=== PATIENT | female | born 1960 | race Caucasian/White ===

== ENCOUNTER → 2017-05-23 | Outpatient (CLI) | payer OTHER ==
--- NOTE | 2017-05-26 08:34 | RAD ---
EXAM DESCRIPTION: Knee,Left Complete CLINICAL HISTORY: 56 yearsFemale, PAIN IN LEFT KNEE COMPARISON: 06/08/2015 IMPRESSION: 4 views of the left knee were obtained. Severe changes of osteoarthritis are present involving all 3 compartments of the knee. The findings are most pronounced in the medial tibiofemoral compartment where there is complete loss of the joint space with a [id number] appearance and significant subchondral sclerosis. Large marginal patellofemoral osteophytes are present. There is no evidence of acute fracture or destructive osseous lesion. No evidence of a joint effusion. Degenerative changes have slightly progressed since the prior exam. Electronically signed by: Rishi Cox MD 05/26/2017 8:33 AM CDT
--- NOTE | 2017-05-26 08:35 | RAD ---
EXAM DESCRIPTION: Pelvis CLINICAL HISTORY: 56 yearsFemale, PAIN IN LEFT HIP COMPARISON: 06/08/2015 IMPRESSION: There is no evidence of acute fracture, dislocation, or destructive osseous lesion. Moderate changes of osteoarthritis are demonstrated in the left hip with narrowing of the joint space and subchondral sclerosis in the acetabulum. More mild to moderate changes of osteoarthritis in the right hip. Moderate degenerative changes in the pubic symphysis and mild degenerative changes in both sacroiliac joints. Calcified phleboliths in the pelvis. Electronically signed by: Rishi Cox MD 05/26/2017 8:34 AM CDT
== END | disposition home or self-care (01) ==
LOC: RAD 09:21
PROVIDERS: ATTEND Orthopaedic Surgery
DX: M25.552 Pain in left hip (principal); M25.562 Pain in left knee

== ENCOUNTER → 2017-07-04 | Outpatient (CLI) | payer OTHER ==
--- NOTE | 2017-07-04 16:17 | RAD ---
EXAM DESCRIPTION: Chest,2 Views CLINICAL HISTORY: 56 years Female, PRE-OP. OSTEOARTHRITIS. M19.90 COMPARISON: None. IMPRESSION: Heart size and pulmonary vascularity are within normal limits. There is no airspace consolidation, pleural effusion, or pneumothorax. No acute osseous abnormality. Electronically signed by: Ezekiel Fields MD 07/04/2017 4:16 PM CDT
== END ==
LOC: YCFC.O 08:07
PROVIDERS: ATTEND Orthopaedic Surgery
DX: M19.90 Unspecified osteoarthritis, unspecified site (principal); Z01.818 Encounter for other preprocedural examination

== ENCOUNTER 2017-07-16 07:00 | Inpatient (IN) | payer OTHER ==
--- NOTE | 2017-07-14 11:21 | HP ---
CHIEF COMPLAINT: Left knee pain. HISTORY OF PRESENT ILLNESS: Karuna is a patient of ours that we have done a right total knee arthroplasty on in the past. She has been having pain now that has been going on for quite some time. She says the pain is starting to cause her to have difficulty with ambulation. She denies any radiation of pain , neurologic symptoms or trauma. She has failed conservative measures. Because of her failure of conservative measures, she has requested operative intervention. After discussing the risks, benefits and alternatives to that, the patient has given informed consent. PAST SURGICAL HISTORY: 1. Contralateral total knee arthroplasty. MEDICATIONS: 1. Lisinopril. 2. Metformin. 3. Glimepiride. 4. Tramadol. 5. Tylenol with codeine. ALLERGIES: DARVON. CODE STATUS: Full code. IMMUNIZATIONS: Up to date. SOCIAL HISTORY: The patient does not drink or use any illicit drugs. She does smoke. FAMILY HISTORY: None pertinent to today's complaint. REVIEW OF SYSTEMS: Negative except as indicated in the History of Present Illness. PHYSICAL EXAMINATION: VITAL SIGNS: Blood pressure 128/77. Pulse 92. Height 5'3". Weight 230. MENTAL STATUS: The patient is awake, alert, and is able to give a good history and participate in the physical. The patient is oriented to person, place and time. SKIN: Normal tone and turgor. HEENT: Normocephalic, atraumatic. Pupils equal, round and reactive. Mucosal membranes are moist. NECK: Normal range of motion. No thyromegaly, no lymphadenopathy. CHEST: Normal respiratory excursion. CARDIAC: Regular rate and rhythm. No murmurs, rubs or gallops. MUSCULOSKELETAL: The bilateral upper extremities show full active range of motion. She has intact sensation in the extremities and they are warm and well perfused. There is no deformity and no crepitus. The right lower extremity shows full extension. Flexion is to about 105 degrees. She has a well-healed wound anteriorly. Sensation is intact. It is warm and well perfused. There is no laxity. The left knee shows extension that is full, but flexion only to about 90 degrees. Sensation is intact throughout. She has no varus/valgus or anterior/posterior laxity. She has varus deformity. IMAGING: X-rays show advanced arthritis with varus deformity. ASSESSMENT: 1. Advanced osteoarthritis. PLAN: At this point, she has failed conservative measures. As such, she is requesting operative intervention. We have discussed the risks, benefits, and alternatives to that and the patient has given informed consent. #[id number] [facility]
[~2017-07-16 07:00] MED LIST: ACETAMINOPHEN 325 MG TAB PO PRN; ACETAMINOPHEN 500 MG TAB PO PRN; ACETAMINOPHEN IV 1000 MG/100 ML BOTTLE IV ONE; ALUMINUM & MAGNESIUM HYDROXIDE 30 ML UD PO PRN; BENZOCAINE-MENTH LOZ (CEPACOL) 1 EA LOZ MT PRN; BISACODYL SUPPOSITORY 10 MG PR PRN; BUPIVACAINE 0.25% W/EPI 50 ML VIAL INJ ONE; DEX 5% W/NACL 0.45% 1000ML 1,000 ML IVS PRN; LACTATED RINGERS 1,000 ML ONE; MAGNESIUM HYDROXIDE 30 ML UD PO PRN; MIDAZOLAM INJ 5 MG/5 ML VIAL IV ONE; MORPHINE PCA 1 MG/ML 100ML 1 BAG in PREMIX BAG 1 BAG IVPB SCH; MORPHINE SULFATE *EPIDURAL* 0.5 MG/ML VIAL INJ ONE; MORPHINE SULFATE INJ 10 MG/ML VIAL IM PRN; MORPHINE SULFATE INJ 10 MG/ML VIAL IV PRN; NALOXONE HCL INJ 0.4 MG/ML VIAL IV PRN; ONDANSETRON INJ 4 MG/2 ML VIAL IV PRN; PROMETHAZINE HCL INJ 12.5 MG in SODIUM CHLORIDE 0.9% 50ML 50 ML IVPB PRN; PROMETHAZINE HCL INJ 25 MG in SODIUM CHLORIDE 0.9% 50ML 50 ML IVPB PRN; SODIUM CHL 0.9% 100ML MINI-BAG 100 ML IVPB ONE; SODIUM CHLORIDE 0.9% (FLUSH) 10 ML SYG IV PRN; SODIUM CHLORIDE 0.9% 100ML 100 ML IVPB ONE; SODIUM CHLORIDE 0.9% 250ML 250 ML ONE; TEMAZEPAM 15 MG CAP PO PRN; TRANEXAMIC ACID 1,000 MG/10 ML VIAL ONE; TRANEXAMIC ACID INJ 1,000 MG in SODIUM CHLORIDE 0.9% 100ML 100 ML IVPB ONE; VANCOMYCIN HCL INJ 1,000 MG VIAL IVPB ONE; ZOLPIDEM TARTRATE 5 MG TAB PO PRN; ceFAZolin SODIUM 1 GM VIAL ONE; fentaNYL CITRATE INJ 50 MCG/ML AMP IV ONE
[2017-07-16] MEDS ORDERED: KETAMINE HCL 100 MG/ML VIAL ONE (07:56)
[2017-07-16] MEDS ORDERED: SUGAMMADEX SODIUM 200 MG/2 ML VIAL IV ONE (09:03)
[2017-07-16] MEDS ORDERED: MORPHINE PCA 1 MG/ML 100 ML BAG IVPB ONE (09:28)
[2017-07-16] MEDS ORDERED: LEVALBUTEROL NEBS 1.25 MG/3 ML VIAL NEB ONE (10:14)
[2017-07-16] MEDS ORDERED: LACTATED RINGERS 1,000 ML ONE (10:30)
[2017-07-16] MEDS: IV SET AND CAP CHANGE INJ INJ SCH (11:52)
[2017-07-16] MEDS: CELECOXIB 100 MG CAP PO SCH ×2 (11:53→17:52)
[2017-07-16] MEDS: MAGNESIUM OXIDE 400 MG TAB PO SCH (11:53)
[2017-07-16] MEDS ORDERED: DEXAMETHASONE INJ 10 MG/ML VIAL IV ONE (12:00)
[2017-07-16] MEDS ORDERED: PROPOFOL 200 MG/20 ML VIAL IV ONE (12:00)
[2017-07-16] MEDS ORDERED: SODIUM CHLORIDE 0.9% 50 ML VIAL INJ ONE (12:00)
[2017-07-16] MEDS ORDERED: LIDOCAINE 1% 10 ML VIAL INJ ONE (12:00)
[2017-07-16] MEDS ORDERED: METOCLOPRAMIDE HCL INJ 10 MG/2 ML VIAL IV ONE (12:00)
[2017-07-16] MEDS ORDERED: raNITIdine HCL INJ 25 MG/ML VIAL IV ONE (12:00)
[2017-07-16] MEDS ORDERED: PHENYLEPHRINE INJ 1ML 10 MG/ML VIAL IV ONE (12:00)
[2017-07-16] MEDS ORDERED: SODIUM CHLORIDE 0.9% 250ML 250 ML ONE (14:50)
[2017-07-16] MEDS ORDERED: VANCOMYCIN HCL INJ 1,000 MG VIAL IVPB ONE (14:51)
[2017-07-16] MEDS ORDERED: ceFAZolin SODIUM 1 GM VIAL ONE (14:51)
[2017-07-16] MEDS ORDERED: GLUCAGON INJ 1 MG VIAL SUBCU PRN (15:29)
[2017-07-16] MEDS ORDERED: DEXTROSE 50% 25 GM/50 ML SYG IV PRN (15:29)
[2017-07-16] MEDS ORDERED: ALBUTEROL SULFATE 2.5 MG/3 ML VIAL NEB PRN (15:31)
[2017-07-16] MEDS: SODIUM CHLORIDE 0.45% 1000ML 1,000 ML IVS PRN (15:32)
[2017-07-16] MEDS: ALBUTEROL SULFATE 2.5 MG/3 ML VIAL NEB SCH ×2 (16:01→19:25)
--- NOTE | 2017-07-16 16:47 | PN ---
DATE: 07/16/17 SUBJECTIVE: Ms. Mack is doing well. She is comfortable. OBJECTIVE: She is afebrile. Vital signs are stable. Dressing is clean, dry and intact. ASSESSMENT: 1. Status post total knee arthroplasty. PLAN: The plan at this point is for her to begin weightbearing as tolerated on postoperative day 1. #[id number] [facility]
--- NOTE | 2017-07-16 17:00 | OP ---
DATE OF PROCEDURE: 07/16/17 PREOPERATIVE DIAGNOSIS: 1. Left knee osteoarthritis. POSTOPERATIVE DIAGNOSIS: 1. Left knee osteoarthritis. PROCEDURE: 1. Total knee arthroplasty. SURGEON: Garcia Kang M.D. SHIPPING LEAD PERSON: Saul Merritt CST, -C ANESTHESIA: General anesthesia. COMPLICATIONS: None. FINDINGS: Severe osteoarthritis. INDICATION FOR PROCEDURE: Ms. Mack has a history of severe knee pain. Ms. Mack has had total knee arthroplasty on the contralateral side and requested operative intervention on this side. After discussing the risks, benefits, and alternatives to that, she gave informed consent for that. DESCRIPTION OF PROCEDURE: The patient was brought to the Operating Room and placed in supine position. General anesthesia was induced and the patient's leg was sterilely prepped and draped. Following prepping and draping, the distal femur was exposed and using an intramedullary guide, the distal femoral cut was made. The appropriate sized cutting block was measured, pinned into place, and the anterior, posterior, and chamfer cuts were made. The ACL was transected and the tibia was subluxed. Both the medial and lateral menisci were removed. An intramedullary guide was used to make the proximal tibial cut. The appropriate sized base plate was placed and a trial polyethylene was placed. The trial femur was placed, the knee was reduced, and the knee was taken through a range of motion. The knee was stable in anterior, posterior, varus and valgus stress. The patella tracked anatomically without evidence of subluxation or dislocation. After trialing, the trial components were removed and the bony surfaces were thoroughly irrigated with saline. Following irrigation, the surfaces were dried and the final components were cemented into place. The excess cement was removed and the remaining cement was allowed to cure. The knee was again taken through a range of motion to confirm stability. The wound was then irrigated with saline and closure was performed using PDS to approximate the arthrotomy followed by closure of the subcutaneous tissues with a combination of running and interrupted Monocryl sutures. Sterile dressing was placed. The patient was awoken from anesthesia and taken to Recovery. COMPONENTS: Danna triathlon knee size 14 with size 4 tibia, 9 mm insert. POSTOPERATIVE INSTRUCTIONS: She will be weightbearing as tolerated on postoperative day 1. #[id number] [facility]
[2017-07-16] MEDS: INSULIN LISPRO 100 UNITS/ML PEN SUBCU SCH ×2 (17:04→21:04)
[2017-07-16] MEDS: CEFAZOLIN SODIUM 2 GRAMS IV 2 GM in PREMIX BAG 1 BAG IVPB SCH (17:11)
[2017-07-16] MEDS: GLIMEPIRIDE 2 MG TAB PO SCH (17:52)
[2017-07-16] MEDS: VANCOMYCIN HCL INJ 1,000 MG in SODIUM CHLORIDE 0.9% 250ML 250 ML IVPB SCH (17:53)
[2017-07-16] MEDS: metFORMIN HCL 500 MG TAB PO SCH (17:53)
--- NOTE | 2017-07-16 17:56 | CONS ---
SUPERVISING PHYSICIAN: Trevor Davila M.D. CHIEF COMPLAINT: Right knee pain. HISTORY OF PRESENT ILLNESS: This is a 56 year-old female patient who has been having a lot of knee pain over the last few years. The pain in her left knee has caused her difficulty with ambulation. She has failed conservative measures and because of this failure she has requested that Dr. Garcia Kang do a left total knee on her, and I am seeing her postoperatively after her left total knee arthroplasty. PAST MEDICAL HISTORY: 1. Diabetes mellitus. 2. Chronic obstructive pulmonary disease. 3. Chronic tobacco use. 4. Hypertension. PAST SURGICAL HISTORY: 1. Tubal ligation. 2. Left knee arthroscopy in 2003. 3. Heel spur removal. 4. Right total knee arthroplasty in 2015. CURRENT MEDICATIONS: Per the EMR and awaiting verification. ALLERGIES: ASPIRIN, SHELLFISH, AVOCADOS AND DARVON. FAMILY HISTORY: Noncontributory. SOCIAL HISTORY: She lives in [place]. Her primary care physician is Dr. Richard Alejandre. She is . She smokes 1 pack of cigarettes per day. She denies any ETOH or illicit drug use. REVIEW OF SYSTEMS: Denies weight change, fever or fatigue. HEENT: Denies ear pain, vision changes, sinus symptoms or sore throat. RESPIRATORY: Denies coughing, congestion or wheezing. CARDIOVASCULAR: Denies chest pain, palpitations or tachycardia. GASTROINTESTINAL: Denies abdominal pain, nausea, vomiting, diarrhea or constipation. GENITOURINARY: Denies dysuria, hematuria or polyuria. EXTREMITIES: As per the history of present illness. NEUROLOGIC: Denies headache, dizziness or seizures. PHYSICAL EXAMINATION: VITAL SIGNS: She is afebrile, heart rate 97, blood pressure 135/86, respiratory rate 18, O2 sat is 97% on 3 liters nasal cannula. GENERAL: This is a 56 year-old obese female patient who is lying in her hospital bed. She is in no acute distress. HEENT: Normocephalic and atraumatic. Pupils are equal and reactive. Oropharynx is clear. NECK: Supple without mass. CHEST: Essentially clear to auscultation bilaterally. There is equal rise and fall of the chest with inspiration and expiration. HEART: Regular rate and rhythm. ABDOMEN: Soft, nondistended, non-tender. Bowel sounds are positive. EXTREMITIES: Bilateral pedal pulses are palpable at +2. She has an Iceman in place to the left knee and she is also on the CPM machine. SKIN: Warm and dry. NEUROLOGIC: She is awake, alert and oriented times three. LABORATORY: Glucose has run between 120 and 151. X-ray has been reviewed via the EMR. All other labs and films have been reviewed via the EMR. IMPRESSION: 1. Arthritis of the left knee after failing conservative measures, postoperative left total knee arthroplasty performed by Dr. Garcia Kang, orthopedic surgeon, postoperative day number zero. 2. Hypertension. 3. Chronic tobacco use. 4. Chronic obstructive pulmonary disease. 5. Diabetes mellitus type 2. PLAN: We will continue present supportive care. Dr. Kang will cover for orthopedic issues. She will begin her physical therapy for strengthening and conditioning tomorrow. Restarted her home medicines, including adding Accu- Cheks with sliding scale insulin. I have encouraged her to stop smoking and I have also encouraged good pulmonary hygiene. I have ordered breathing treatments. We will continue to monitor the patient closely and followup as needed. Dr. Davila is the collaborating physician available for consultation. [facility][id number] [facility]
[2017-07-16] MEDS: FLUTICASONE/SALMETEROL 250/50 14 PUFF/17 GM INH INH SCH (19:25)
[2017-07-16] MEDS ORDERED: ENOXAPARIN SODIUM 30 MG/0.3 ML SYG SUBCU ONE (20:02)
[2017-07-16] MEDS ORDERED: CEFAZOLIN SODIUM 2 GRAMS IV 50 ML IVPB ONE (20:02)
[2017-07-16] MEDS: DOCUSATE CALCIUM 240 MG CAP PO SCH (21:10)
[2017-07-16] MEDS: LISINOPRIL 10 MG TAB PO SCH (21:11)
[2017-07-16] MEDS: ENOXAPARIN SODIUM 30 MG/0.3 ML SYG SUBCU SCH (22:55)
[2017-07-17] MEDS: CEFAZOLIN SODIUM 2 GRAMS IV 2 GM in PREMIX BAG 1 BAG IVPB SCH ×2 (00:09→07:46)
--- NOTE | 2017-07-17 03:32 | RAD ---
Examination: XR KNEE 1-2 VIEWS dated 07/16/2017 6:55 AM CDT History: TKA Comparison: Knee radiograph February 20, 2017 Technique: Two views of the left knee FINDINGS AND IMPRESSION: Interval total left knee arthroplasty without obvious hardware complication. Subcutaneous emphysema and large joint effusion which is expected early postsurgical change. Electronically signed by: Pollo Lopez MD 07/17/2017 3:30 AM CDT
[2017-07-17] MEDS ORDERED: VANCOMYCIN HCL INJ 1,000 MG VIAL IVPB ONE (03:37)
[2017-07-17] MEDS ORDERED: SODIUM CHLORIDE 0.9% 250ML 250 ML ONE (03:37)
[2017-07-17] MEDS: VANCOMYCIN HCL INJ 1,000 MG in SODIUM CHLORIDE 0.9% 250ML 250 ML IVPB SCH (05:46)
[2017-07-17] MEDS ORDERED: CEFAZOLIN SODIUM 2 GRAMS IV 50 ML IVPB ONE (07:34)
[2017-07-17] MEDS: metFORMIN HCL 500 MG TAB PO SCH ×2 (07:46→16:39)
[2017-07-17] MEDS: CELECOXIB 100 MG CAP PO SCH ×2 (07:46→16:39)
[2017-07-17] MEDS: INSULIN LISPRO 100 UNITS/ML PEN SUBCU SCH ×4 (07:53→21:17)
--- NOTE | 2017-07-17 08:13 | PN ---
DATE: 07/17/17 SUBJECTIVE: Ms. Mack is doing well and says she is ready to get out of bed. OBJECTIVE: Afebrile. Vital signs stable. Dressing is clean, dry and intact. ASSESSMENT: Status post total knee arthroplasty. PLAN: She will begin weight-bearing as tolerated and increase CPM as tolerated. #[id number] [facility]
[2017-07-17] MEDS: MAGNESIUM OXIDE 400 MG TAB PO SCH (08:44)
[2017-07-17] MEDS: LISINOPRIL 10 MG TAB PO SCH ×2 (08:44→20:46)
[2017-07-17] MEDS: FLUTICASONE/SALMETEROL 250/50 14 PUFF/17 GM INH INH SCH ×2 (08:48→19:15)
[2017-07-17] MEDS: ALBUTEROL SULFATE 2.5 MG/3 ML VIAL NEB SCH ×4 (08:48→19:15)
[2017-07-17] MEDS: HYDROcodone 5MG/APAP 325MG 1 EA TAB PO PRN ×2 (08:49→20:46)
[2017-07-17] MEDS: ENOXAPARIN SODIUM 30 MG/0.3 ML SYG SUBCU SCH ×2 (11:17→22:51)
[2017-07-17] MEDS ORDERED: NICOTINE PATCH 21 MG TD SCH (12:00)
[2017-07-17] MEDS: CYCLOBENZAPRINE HCL 10 MG TAB PO PRN ×2 (13:13→22:51)
[2017-07-17] MEDS: SODIUM CHLORIDE 0.45% 1000ML 1,000 ML IVS PRN (16:26)
[2017-07-17] MEDS: GLIMEPIRIDE 2 MG TAB PO SCH (16:39)
--- NOTE | 2017-07-17 19:43 | PN ---
DATE: 07/17/17 SUPERVISING PHYSICIAN: Trevor Davila M.D. SUBJECTIVE: The patient is resting in bed having just finished her CPM. Her site is dry and clean with no signs of infection. She has had no nausea or vomiting. Tolerating her diet well. She has been afebrile. She is requesting a nicotine patch. OBJECTIVE: VITAL SIGNS: T max 98.6, pulse 111, blood pressure 133/68, respirations 16, satting 95% on room air. I's and O's show a negative balance of 320 with 880 in, 1200 out. Weight is 107.6 kg. CHEST: Lungs are clear to auscultation bilaterally. HEART: Regular rate and rhythm. ABDOMEN: Soft, non- tender. Positive bowel sounds. EXTREMITIES: Bulky surgical dressing is in place over the left knee with the patient in the CPM. Pulses distally are strong. Capillary refill is brisk. NEUROLOGIC: She is alert and oriented times three. LABORATORY: Blood sugar is between 98 and 164. ASSESSMENT: 1. Arthritis of the left knee having failed conservative treatment measures in the outpatient setting requiring operative intervention with left total knee arthroplasty with the patient being on postoperative day 1. 2. Hypertension. 3. Chronic tobacco abuse. 4. Chronic obstructive pulmonary disease. 5. Diabetes mellitus type 2. PLAN: Will continue to follow the patient as she progresses through her physical therapy efforts under Physical Therapy and Dr. Kang. I will go ahead and start her on a nicotine patch as she does smoke approximately 1 pack a day, will start her on 21 mg daily. She will continue on sliding scale per protocol. Will continue to encourage pulmonary hygiene and incentive spirometry to prevent any postoperative complications. Will anticipate discharge at the discretion of Orthopedic Services and Physical Therapy when the patient has met her set goals. The plan at that point will be to continue with home PT with arrangements pending. Until then, will continue to monitor and treat appropriately. [facility][id number] [facility]
[2017-07-17] MEDS: DOCUSATE CALCIUM 240 MG CAP PO SCH (20:46)
[2017-07-18] MEDS: HYDROcodone 5MG/APAP 325MG 1 EA TAB PO PRN ×2 (02:23→08:08)
[2017-07-18] MEDS: traMADol HCL 50 MG TAB PO PRN ×2 (05:36→20:38)
[2017-07-18] MEDS: MAGNESIUM OXIDE 400 MG TAB PO SCH (08:08)
[2017-07-18] MEDS: metFORMIN HCL 500 MG TAB PO SCH ×2 (08:08→17:12)
[2017-07-18] MEDS: CYCLOBENZAPRINE HCL 10 MG TAB PO PRN ×2 (08:08→14:38)
[2017-07-18] MEDS: LISINOPRIL 10 MG TAB PO SCH ×2 (08:08→20:29)
[2017-07-18] MEDS: CELECOXIB 100 MG CAP PO SCH ×2 (08:08→17:12)
[2017-07-18] MEDS: INSULIN LISPRO 100 UNITS/ML PEN SUBCU SCH ×4 (08:18→22:06)
[2017-07-18] MEDS: NICOTINE PATCH 21 MG TD SCH (08:32)
[2017-07-18] MEDS: SODIUM CHLORIDE 0.9% (FLUSH) 10 ML SYG IV SCH ×2 (08:34→20:30)
[2017-07-18] MEDS: FLUTICASONE/SALMETEROL 250/50 14 PUFF/17 GM INH INH SCH ×2 (08:43→20:57)
[2017-07-18] MEDS: ALBUTEROL SULFATE 2.5 MG/3 ML VIAL NEB SCH (08:43)
[2017-07-18] MEDS ORDERED: HYDROcodone 10MG/APAP 325MG 1 EA TAB ONE (10:37)
[2017-07-18] MEDS: HYDROcodone 10MG/APAP 325MG 1 EA TAB PO PRN ×3 (10:42→18:34)
[2017-07-18] MEDS: ARFORMOTEROL TARTRATE 15 MCG/2 ML NEB NEB SCH ×2 (10:53→20:56)
[2017-07-18] MEDS: ENOXAPARIN SODIUM 30 MG/0.3 ML SYG SUBCU SCH ×2 (12:17→22:06)
--- NOTE | 2017-07-18 13:54 | PN ---
SUPERVISING PHYSICIAN: Trevor Davila MD DATE: 07/18/17 SUBJECTIVE: The patient came off her pump in the middle of the night. She has had some difficulty controlling her pain with p.o. medications and is making slow progress at this point. Her wounds remain clean and dry without any obvious signs of infection. She remains afebrile. She is tolerating the nicotine patch. OBJECTIVE: VITAL SIGNS: T-max 98.7. Pulse 100. Blood pressure 131/82. Respirations 20. Saturation 92% on room air. I&Os show positive balance of 1820 with 2620 in, 800 out. She has had several bowel movements. CHEST: Lungs clear to auscultation, just diminished slightly, more so on the right than the left, but no rhonchi or wheezing. HEART: Regular rate and rhythm. ABDOMEN: Obese, but soft and nontender. Positive bowel sounds. EXTREMITIES: The left knee has a surgical dressing in place which is clean and dry. There are no signs of infection. Distal pulses are strong. Capillary refill is brisk. NEUROLOGIC: Alert and oriented times three. LABORATORY: Postoperative hemoglobin and hematocrit yesterday was 9, hemoglobin 12.7, hematocrit 37.4. Blood sugars range from 98 to 161. ASSESSMENT: 1. Arthritis of the left knee having failed conservative treatment measures in the outpatient setting requiring operative intervention with left total knee arthroplasty with the patient being on postoperative day 2. 2. Hypertension. 3. Chronic tobacco abuse, encouraged to stop smoking. 4. Chronic obstructive pulmonary disease. 5. Diabetes mellitus type 2, stable. PLAN: The patient has some diminished breath sounds today and has been showing a little elevated heart rate. Therefore, I have transitioned her from albuterol treatments to Xopenex as well as added long-acting beta 2 agonist in the form of Brovana hopefully to assist and improve her lung function. She will continue to be encouraged to have aggressive pulmonary hygiene and utilize her spirometry. Arrangements have been made for discharge when the patient is stable for the [facility] and outpatient physical therapy through [facility]. Until discharge, we will continue to monitor the patient closely and treat appropriately. [facility][id number] [facility]
[2017-07-18] MEDS: LEVALBUTEROL NEBS 1.25 MG/3 ML VIAL NEB SCH ×2 (16:14→23:24)
[2017-07-18] MEDS: GLIMEPIRIDE 2 MG TAB PO SCH (17:12)
[2017-07-18] MEDS: DOCUSATE CALCIUM 240 MG CAP PO SCH (20:29)
[2017-07-19] MEDS: HYDROcodone 10MG/APAP 325MG 1 EA TAB PO PRN ×2 (02:23→08:05)
[2017-07-19] MEDS: FLUTICASONE/SALMETEROL 250/50 14 PUFF/17 GM INH INH SCH (07:09)
[2017-07-19] MEDS: ARFORMOTEROL TARTRATE 15 MCG/2 ML NEB NEB SCH (07:09)
[2017-07-19] MEDS: LEVALBUTEROL NEBS 1.25 MG/3 ML VIAL NEB SCH (07:09)
[2017-07-19] MEDS: CELECOXIB 100 MG CAP PO SCH (08:05)
[2017-07-19] MEDS: INSULIN LISPRO 100 UNITS/ML PEN SUBCU SCH ×2 (08:05→12:29)
[2017-07-19] MEDS: metFORMIN HCL 500 MG TAB PO SCH (08:06)
[2017-07-19] MEDS: MAGNESIUM OXIDE 400 MG TAB PO SCH (08:06)
[2017-07-19] MEDS: IV SET AND CAP CHANGE INJ INJ SCH (08:06)
[2017-07-19] MEDS: NICOTINE PATCH 21 MG TD SCH (08:06)
[2017-07-19] MEDS: LISINOPRIL 10 MG TAB PO SCH (08:06)
[2017-07-19] MEDS: SODIUM CHLORIDE 0.9% (FLUSH) 10 ML SYG IV SCH (09:40)
[2017-07-19] MEDS: ENOXAPARIN SODIUM 30 MG/0.3 ML SYG SUBCU SCH (10:58)
[2017-07-19] MEDS ORDERED: INFLUENZA VIRUS VACC (ADULT) 0.5 ML SYG IM ONE (11:00)
[2017-07-19] MEDS ORDERED: RIVAROXABAN 10 MG TAB PO ONE (13:00)
[2017-07-19 13:15] VITALS: BP 153/89; TEMP 96.7; O2SAT 95
--- NOTE | 2017-07-19 14:13 | DS ---
SUPERVISING PHYSICIAN: Trevor Davila M.D. DISCHARGE DIAGNOSIS: 1. Arthritis of the left knee having failed conservative treatment measures in the outpatient setting requiring operative intervention with left total knee arthroplasty with the patient being on postoperative day 3 at discharge. 2. Hypertension. 3. Chronic tobacco abuse, encouraged to stop smoking. 4. Chronic obstructive pulmonary disease. 5. Diabetes mellitus type 2, stable. HISTORY OF PRESENT ILLNESS: Ms. Mack is a 56 year-old female patient that had been having lots of knee pain over the last several years. The pain in her left knee had caused her difficulty with ambulation and hampered her ability to work. She had failed conservative treatment measures and due to this failure she requested Dr. Garcia Kang perform a left total knee arthroplasty. She had surgery on 07/16/17 for a total left knee arthroplasty. She was followed postoperatively and was stable at time of admission to the Medical/Surgical floor. POSTOPERATIVE LABORATORY: H&H was 12.7, hematocrit 37.4, blood sugars were well controlled between 94 and 134. No microbiology specimens were submitted. RADIOLOGY: No postoperative radiological studies were submitted. HOSPITAL COURSE: Ms. Mack was admitted on 07/16/17 as noted in the history of present illness for a total left knee arthroplasty. She tolerated surgery well and was seen postoperatively and followed through her hospitalization. She had good pain control and no postoperative complications, and did well with physical therapy and advanced to the point on discharge that it was felt that she was able to be discharged to continue with outpatient treatment plan. PLAN: Ms. Mack was discharged on 07/19/17 with instructions to followup with Dr. Kang as scheduled on 08/04/17 at 9:45 AM. She is to resume her home medications as instructed previously and to follow wound management as per Dr. Kang's instructions. She was to start new medications as directed. She was instructed to either call Dr. Kang or return to the hospital should she have any failure to improve in her condition or any other concerning symptoms. Diet at discharge was a diabetic diet as tolerated. Activity is as per Physical Therapy , to walk with a walker only. No tub baths, shower only. Medications at discharge included prescriptions for: 1. Celebrex 100 mg twice daily. 2. Flexeril 10 mg every 8 hours as needed, #15. 3. [place] 5/325, prescription written by Dr. Kang. 4. Xarelto 10 mg daily for 8 days, prescription provided by Dr. Kang. Condition at discharge was stable and improved. [facility][id number] [facility]
[2017-07-19] MEDS ORDERED: MAGNESIUM HYDROXIDE 30 ML UD PO ONE (21:00)
[2017-07-19] MEDS ORDERED: BISACODYL SUPPOSITORY 10 MG PR ONE (21:00)
--- NOTE | 2017-07-21 13:56 | PN ---
DATE: 07/18/17 SUBJECTIVE: Ms. Mack is doing really well, up to bed and mobilizing just about independently. OBJECTIVE: Afebrile. Vital signs stable. Wound is clean. There are no signs or symptoms of infection. ASSESSMENT: Status post total knee arthroplasty. PLAN: She will continue with therapy. We will likely discharge her in the next day or two. #[id number] [facility]
== END 2017-07-19 13:25 | disposition home or self-care (01) | DRG 470 ==
LOC: AMB 07:00 → MS 10:20
PROVIDERS: ADMIT Orthopaedic Surgery; ATTEND Nurse Practitioner Family
PROC: 0SRD0J9 Replacement of Left Knee Joint with Synthetic Substitute, Cemented, Open Approach (ICD-10-PCS; principal; 2017-07-16 07:00)
DX: M17.12 Unilateral primary osteoarthritis, left knee (principal); I10 Essential (primary) hypertension; E11.9 Type 2 diabetes mellitus without complications; F17.210 Nicotine dependence, cigarettes, uncomplicated; J44.9 Chronic obstructive pulmonary disease, unspecified; Z79.51 Long term (current) use of inhaled steroids; Z79.84 Long term (current) use of oral hypoglycemic drugs; Z79.899 Other long term (current) drug therapy; Z96.651 Presence of right artificial knee joint; Z88.6 Allergy status to analgesic agent; Z91.013 Allergy to seafood

== ENCOUNTER → 2019-08-27 | Outpatient (CLI) | payer OTHER | LOC: LAB.O 10:18 | PROVIDERS: ATTEND Orthopaedic Surgery | DX: Z01.818 Encounter for other preprocedural examination (principal) ==

== ENCOUNTER 2019-10-27 05:30 | Day surgery (SDC) | payer OTHER ==
--- NOTE | 2019-09-03 09:05 | HP ---
CHIEF COMPLAINT: Right first and second toe pain. HISTORY OF PRESENT ILLNESS: Mr. Mack is a 59-year-old female with a history of worsening pain in the first and second toe. She has had this going on for years and it has been getting progressively worse. She has had difficulty with shoe wear and walking now and has pain that measures up to an 8 at times. She has no alleviating factors. Aggravating factors including shoe wear and weightbearing. She has not had surgical intervention for this in the past. Because of her ongoing pain, she requested operative intervention. After discussing the risks, benefits and alternatives to that, she has given informed consent. PAST SURGICAL HISTORY: 1. Tubal ligation. 2. Bilateral total knee arthroplasty. MEDICATIONS: 1. Lisinopril. 2. Tramadol. 3. Vitamin D. 4. Multiple B vitamin. 5. Aleve. 6. Advair. PAIN CONTRACT: None. ALLERGIES: ASPIRIN, SHELLFISH. CODE STATUS: Full code. IMMUNIZATIONS: Up to date. SOCIAL HISTORY: The patient does not drink or use any illicit drugs. She does smoke about a pack a day. FAMILY HISTORY: None pertinent to today's complaint. REVIEW OF SYSTEMS: Negative except as indicated in the History of Present Illness. HEENT: The patient reports no symptoms. RESPIRATORY: The patient reports no symptoms. CARDIOVASCULAR: The patient reports no symptoms. GASTROINTESTINAL: The patient reports no symptoms GENITOURINARY: The patient reports no symptoms. MUSCULOSKELETAL: Negative except as noted in History of Present Illness. SKIN: The patient reports no symptoms. NEUROLOGIC: The patient reports no symptoms. PHYSICAL EXAMINATION: VITAL SIGNS: Blood pressure 170/88. Pulse 89. Height 5'3". Weight 251 pounds. MENTAL STATUS: The patient is awake, alert, and is able to give a good history and participate in the physical. The patient is oriented to person, place and time. SKIN: Normal tone and turgor. HEENT: Normocephalic, atraumatic. Pupils equal, round and reactive. Mucosal membranes are moist. NECK: Normal range of motion. No thyromegaly, no lymphadenopathy. CHEST: Normal respiratory excursion. CARDIAC: Regular rate and rhythm. No murmurs, rubs or gallops. MUSCULOSKELETAL: She has bilateral upper extremities with full active range of motion. There is no pain, no deformity and no crepitus. There is no malalignment. She has full 5/5 strength. She has intact sensation. She has a negative belly press maneuver, negative Neer, negative Azrola. She maintains full range of motion of the elbow in both flexion and extension. Embedded Software Manager strength is 5/5. The left lower extremity shows full range of motion in the hip, knee and ankle. She does have a slight bony deformity at the great toe. She does maintain full range of motion of the digits. She has some irritation over the great toe first metatarsophalangeal joint. She has no malalignment in the hip, knee or ankle. She has a well-healed wound on the anterior aspect of the knee. There is no crepitus and no deformity. The right lower extremity shows full range of motion in the hip and knee. She has intact sensation throughout the extremity. Strength is 5/5. She has no malalignment and no deformity of the hip, knee or ankle. She has an obvious bunion deformity. The second toe has obvious hammertoe deformity. She has rotation of the dorsum of the second toe as well as the medial aspect of the metatarsophalangeal joint of the great toe. Strength is 5/5 throughout. Skin is intact on both lower extremities. Reflexes are 2+ in both lower extremities and equal bilaterally. RADIOLOGY: My interpretation of the x-rays shows bony deformity and arthritis of the first metatarsophalangeal joint. She has hammertoe deformity of the second digit. ASSESSMENT: 1. Bunion deformity of the right great toe. 2. Hammertoe deformity of the second toe. PLAN: At this point, we have discussed the risks, benefits, and alternatives to operative therapy. She has given informed consent for great toe fusion with bunionectomy as well as fusion of the second digit. #[id number] [facility]
[2019-10-27] MEDS ORDERED: ceFAZolin SODIUM 1 GM VIAL ONE ×2 (05:36→06:49)
[2019-10-27] MEDS ORDERED: SODIUM CHL 0.9% 100ML MINI-BAG 100 ML IVPB ONE (05:36)
[2019-10-27] MEDS ORDERED: LACTATED RINGERS 1,000 ML ONE (05:36)
[2019-10-27] MEDS ORDERED: MIDAZOLAM INJ 2 MG/2 ML VIAL ONE (06:47)
[2019-10-27] MEDS ORDERED: fentaNYL CITRATE INJ 50 MCG/ML AMP ONE (06:47)
[2019-10-27] MEDS ORDERED: BUPIVACAINE LIPOSOME 13.3 MG/ML VIAL INJ ONE ×2 (06:49→07:06)
[2019-10-27] MEDS ORDERED: BUPIVACAINE 0.5% 30 ML VIAL INJ ONE ×2 (06:49→07:06)
[2019-10-27] MEDS ORDERED: VANCOMYCIN HCL INJ 1,000 MG VIAL IVPB ONE ×2 (06:49→07:06)
[2019-10-27] MEDS ORDERED: LIDOCAINE 1% 10 ML VIAL INJ ONE (07:00)
[2019-10-27] MEDS ORDERED: DEXAMETHASONE INJ 10 MG/ML VIAL ONE (07:00)
[2019-10-27] MEDS ORDERED: ONDANSETRON INJ 4 MG/2 ML VIAL ONE (07:00)
[2019-10-27] MEDS ORDERED: PROPOFOL 200 MG/20 ML VIAL IV ONE (07:00)
[2019-10-27] MEDS ORDERED: KETOROLAC TROMETHAMINE INJ 30 MG/ML VIAL ONE (07:00)
[2019-10-27] MEDS ORDERED: ceFAZolin SODIUM 1 GM VIAL INJ ONE (07:06)
[2019-10-27] MEDS ORDERED: LACTATED RINGERS 1,000 ML IVS ONE (09:46)
[2019-10-27] MEDS ORDERED: HYDROcodone 5MG/APAP 325MG 1 EA TAB ONE (10:23)
[2019-10-27] MEDS ORDERED: HYDROcodone 5MG/APAP 325MG 1 EA TAB PO ONE (10:27)
--- NOTE | 2019-10-27 12:08 | RAD ---
Study: 3 Views of the Right Foot. Indication: postop Comparison: None. Impression: Plate and screw construct dorsal margin first MTP joint with osteotomy of the first metatarsal head. Surgical screw across the second PIP joint. Bandaging about the foot. No acute fracture. Severe osteoarthritis of the first MTP joint. Calcaneal spurring at the Achilles tendon insertion and plantar fascia origin. Advanced osteoarthritis throughout the midfoot. Electronically signed by: Gio Guzman MD 10/27/2019 12:06 PM [facility]
[2019-10-27 12:30] VITALS: BP 136/76; TEMP 98.8; O2SAT 94
--- NOTE | 2019-10-28 11:15 | RAD ---
EXAM DESCRIPTION: Fluoroscopy Up to 1Hr CLINICAL HISTORY: FUSION RT GREAT TOE AND 2ND TOE COMPARISON: None. IMPRESSION: Spot fluoroscopic intraoperative views of the right foot are obtained for localization purposes during plate and screw fixation of the first metatarsophalangeal joint and orthopedic screw fixation of the DIP joint of the second digit. Approximately 52 seconds of intraoperative fluoroscopy time was utilized. No extra exposure images are obtained. Electronically signed by: Delon Mitchell MD 10/28/2019 11:13 AM [facility]
--- NOTE | 2019-10-29 09:40 | OP ---
DATE OF PROCEDURE: 10/27/19 PREOPERATIVE DIAGNOSIS: 1. Bunion of the right great toe. 2. Hammertoe of the second toe. POSTOPERATIVE DIAGNOSIS: 1. Bunion of the right great toe. 2. Hammertoe of the second toe. PROCEDURE: 1. Fusion and bunionectomy of the right great toe. 2. Fusion of the PIP of the second toe. SURGEON: Garcia Kang MD. PROGRAM REP: Saul Merritt CST, SA-C. ANESTHESIA: General. COMPLICATIONS: None. FINDINGS: 1. Advanced arthritis of the great toe. 2. Bunion deformity. 3. Fixed flexion deformity at the PIP of the second toe. INDICATION: Ms. Mack has a history of pain associated with the aforementioned deformities. She tried shoe wear modification as well as pads on the toes, however, failed to gain relief. Because of her ongoing issues and failure of conservative measures, she has requested operative intervention. After discussing the risks, benefits and alternatives to that, she gave informed consent for that. PROCEDURE: The patient was brought to the Operating Room and placed in the supine position. General anesthesia was induced and the lower leg was sterilely prepped and draped. Following prepping and draping, an incision was made over the dorsum of the foot centered on the metatarsophalangeal joint. Care was taken to dissect down protecting the tendons to the area of the metatarsophalangeal joint. The joint was exposed and the toe was hyperflexed. Both cup and cone reamers were used to shave the distal metatarsal and proximal phalangeal articular surfaces. It was taken down to bony cancellous bleeding bed. It was provisionally fixed with K-wires and then a 6-hole plate was placed across the metatarsophalangeal joint. Screw length and plate placement were confirmed on fluoroscopic imaging. The second toe was then approached using an incision centered on the PIP joint. Dissection was carried down and the joint was exposed. The cartilaginous surfaces were debrided and a K-wire was placed from distal to proximal under fluoroscopic imaging. A single cannulated compression screw was placed across the PIP joint. Following that, the pin was removed. Stability of the first and second digits were checked and confirmed under fluoroscopic imaging. The wounds were very thoroughly irrigated and closed with Nylon suture. Sterile dressings were placed. The patient was awoken from anesthesia and taken to Recovery. POSTOPERATIVE PLAN: She will be partial weightbearing and will followup with us in two days. #[id number] MTDD
== END 2019-10-27 12:25 | disposition home or self-care (01) ==
LOC: AMB 05:30
PROVIDERS: ATTEND Orthopaedic Surgery
DX: M21.611 Bunion of right foot (principal); M19.071 Primary osteoarthritis, right ankle and foot; M20.41 Other hammer toe(s) (acquired), right foot; E11.9 Type 2 diabetes mellitus without complications; E78.5 Hyperlipidemia, unspecified; J45.909 Unspecified asthma, uncomplicated; J44.9 Chronic obstructive pulmonary disease, unspecified; F17.210 Nicotine dependence, cigarettes, uncomplicated; Z96.653 Presence of artificial knee joint, bilateral; Z91.013 Allergy to seafood; Z88.6 Allergy status to analgesic agent; Z79.899 Other long term (current) drug therapy
CPT/HCPCS: 01480; 28285; 28750; 36416; 73630; 76000; 80307; 82948; J0690; J1100; J1885; J2250; J2405; J3010; J3370; J3490; J7050; J7120

== ENCOUNTER → 2020-01-17 | Outpatient (CLI) | payer OTHER ==
--- NOTE | 2020-01-17 10:54 | RAD ---
EXAM DESCRIPTION: Foot,Right 3 Views CLINICAL HISTORY: 59 years, Female, HAMMER TOE COMPARISON: Previous study October 27, 2019 TECHNIQUE: AP, lateral, and oblique views of the right foot FINDINGS: Plate and screws are seen in the distal first metatarsal and proximal phalanx of the great toe with screw through the phalanges of the second toe. Degenerative changes are seen in the medial midfoot with spurring. Lateral view shows intact appearance of the talus and calcaneus. Large dorsal and plantar calcaneal enthesophytes. Prominent degenerative spurring in the mid foot dorsally. IMPRESSION: Orthopedic hardware in the first and second rays of the right forefoot. Prominent spurring of the calcaneus and dorsal midfoot. Electronically signed by: Marvin Lazaro MD 01/17/2020 10:52 AM CDT
== END ==
LOC: RAD 10:29
PROVIDERS: ATTEND Orthopaedic Surgery
DX: M20.41 Other hammer toe(s) (acquired), right foot (principal)

== ENCOUNTER → 2020-04-17 | Outpatient (CLI) | payer OTHER ==
--- NOTE | 2020-04-17 09:29 | RAD ---
EXAM DESCRIPTION: Foot,Right 3 Views CLINICAL HISTORY: HAMMER TOE COMPARISON: 01/17/2020. TECHNIQUE: AP, LATERAL, AND OBLIQUE FINDINGS: The visualized bones appear well mineralized. No acute fracture or dislocation. Changes of bunion correction and arthrodeses of the proximal interphalangeal joint of the second toe are noted. No evidence of bony union. Degenerative changes are again identified in the midfoot and interphalangeal joints. The soft tissues appear grossly unremarkable. IMPRESSION: Changes of bunion correction and arthrodeses of the proximal interphalangeal joint of the second toe are noted. No evidence of bony union. Electronically signed by: Yara Busch MD 04/17/2020 9:24 AM CDT
== END ==
LOC: RAD 07:47
PROVIDERS: ATTEND Orthopaedic Surgery
DX: M20.41 Other hammer toe(s) (acquired), right foot (principal); Z98.890 Other specified postprocedural states